=== PATIENT | male | born 1995 | race Caucasian/White ===

== ENCOUNTER 2021-10-08 11:56 | Day surgery (SDC) | payer OTHER, SELFPAY ==
--- NOTE | 2021-10-07 17:13 | HP.PCM_ITS ---
History and Physical Date of Admission: 10/08/21 HISTORY AND PHYSICAL ? Gilberto Light - 1995 REFERRING PHYSICIAN: Gera Ireland MD CHIEF COMPLAINT: Consult (Rectal Bleeding, Vomiting,Abdominal Pain) HPI: The patient is a 25 year old male presents with history of abdominal pain for the past four weeks. He has noted rectal bleeding for about two weeks. He notes multiple loose watery bowel movements, also, from 10-15 episodes per day. He denies exposure to food poisoning, etc. He also notes episodes of nausea and emesis. His pain is at a level of 5 out of 10, sometimes 7 out of 10 with fecal urgency - relieved after a bowel movement. He denies fevers. He denies cigarettes use, denies ETOH use, denies marijuana use. He denies previous endoscopic evaluation. Stool studies were negative. PAST MEDICAL HISTORY Acne ? ADD (attention deficit disorder) ? PAST SURGICAL HISTORY NONE ? Current Outpatient Medications multivitamin tablet Take 1 tablet by mouth once daily. ascorbic acid (VITAMIN C ORAL) Take by mouth. methylphenidate LA (RITALIN LA) 10 mg 24 hr capsule Take 1 capsule by mouth once daily for 30 days. methylphenidate LA (RITALIN LA) 10 mg 24 hr capsule Take 1 capsule by mouth once daily for 30 days. Do not start before September 05, 2021. ? ALLERGIES: Environmental [Other] ? PERSONAL HISTORY: Smoking status: Never Smoker Smokeless tobacco: Never Used Substance Use Topics Alcohol use: No Drug use: No FAMILY HISTORY ? Diabetes Maternal Grandfather ? ? other (ADHD) Mother ? ? REVIEW OF SYSTEMS: General: The patient NOTES fatigue, NOTES weight loss, denies weight gain, denies feeling hot, and denies feelings of cold. Eyes: The patient denies glaucoma, denies eye injury/surgery, does not wear glasses or contacts. Ear/Nose/Throat: The patient NOTES allergies, denies hayfever, denies ear infections, and denies bloody noses. Cardiovascular: The patient denies chest pain, denies heart disease, denies high blood pressure,denies cardiac stent, denies prior heart attack, denies irregular heart beat, denies high cholesterol, denies poor circulation, denies heart failure, other cardiac issues, denies claudication, denies cold feet, denies peripheral arterial stent. Respiratory: The patient denies tuberculosis, denies pneumonia, denies frequent cough, denies pulmonary embolism, denies shortness of breath, and denies coughing up blood. Gastrointestinal: The patient denies difficulty swallowing, denies acid reflux, denies ulcers, NOTES vomiting, denies jaundice/hepatitis, denies gallbladder problems, denies black or tarry stools, denies hemorrhoids, NOTES bleeding from rectum, denies diverticulitis, denies constipation, NOTES diar josy, denies loss of stool control, and denies hernias. Kidney/Bladder: The patient denies kidney stones, denies urine infections, and denies bloody urine. Skin: The patient denies a history of skin cancer, denies bleeding/changing moles, and denies a history of skin rash. Neurologic: The patient denies a history of epilepsy/convulsions, denies headaches, denies head/spinal injuries, and denies stroke/TIA. Psychiatric: The patient denies psychiatric medications, denies depression, and denies voices, denies substance abuse. Endocrine: The patient denies thyroid disorders, denies diabetes, and denies hormonal problems. Hematologic: The patient denies a history of bruising, denies bleeding, and denies anemia, denies blood clots. Infections: The patient denies a history of measles and mumps, denies rheumatic fever, and denies sexually transmitted diseases. Musculoskeletal: The patient denies back pain/injury, denies back problems, denies sciatica, denies knee/foot trouble, denies arthritis, or denies gout. When was patient's last Mammogram screening? N/A Last Colonoscopy: None Shanique Boyce ? PHYSICAL EXAMINATION: General: The patient is 25 year old male, well nourished, well hydrated in no acute distress. The patient is oriented to time, place, and person. VITALS: Blood pressure 122/83, pulse 115, temperature 36.5 ?C (97.7 ?F), height 185.4 cm (6' 1), weight 97.1 kg (214 lb), SpO2 99 %. Body mass index is 28.23 kg/m?. Head: Normal cephalic, atraumatic Eyes: pupils are equally round, sclera are clear/anicteric Neck is supple with no tracheal deviation Respiratory: Normal respiratory excursion and pattern. Abdominal exam: benign Extremities: no clubbing, cyanosis or edema. Neuro: non focal Psych: normal mood IMPRESSION: rectal bleeding, diarrhea, N/V ? PLAN: I have discussed the above with the patient and his mother who is present with him I have offered colonoscopy and EGD, possible biopsies I have explained the procedure to the patient. I have counseled the patient as to the risks of the procedure, including but not limited to: infection, bleeding, injury to any intrabdominal organs such as liver/spleen, perforation of the GI tract, inability to complete the procedure, complications of anesthesia, etc. ? the patient understands. The patient was offered a surgery/procedure . The provider and patient have discussed in detail the risk of exposure to and/or potential harm posed by the COVID-19 virus with having a surgery/procedure at this time versus the risk of? delaying the surgery/procedure. It is not possible to know either the risk of delaying the surgery or procedure or chance of getting an infection with perfect accuracy, but a joint decision was made between the patient and the provider ?to proceed at this time with the scheduled surgery/procedure. The patient wishes to proceed. I have answered all questions to the patient?s satisfaction and the patient has no further questions. ? ? Bibiana Barth MD
[2021-10-08] VITALS (11 sets, daily range): BP systolic 91–129; BP diastolic 56–79; PULSE 69–97; RESP 16; TEMP 35.9–36.6; O2SAT 95–100; BMI 27.6
[2021-10-08] MEDS: Lactated Ringers 1,000 ML 15 ML IV (12:39)
--- NOTE | 2021-10-08 13:15 | EGD_PTH ---
PATIENT: DEMETRIUS COCHRAN LOC: EN U#:[id number] AGE/SX: 26/M ROOM: RE10/08/[address]: Dr. Bibiana Barth MD : 1995 BED: DIS: 10/08/2021 SPEC #: [id number] RECD: 10/08/21 15:04 STATUS: DANNY JERONIMO #: [id number] HERIBERTO: 10/08/21 13:[address]: Bibiana Barth DEPT: SURGICAL PATHOLOGY RECD BY: Gwen Briones ENTERED: 10/09/21 11:03 SP TYPE: EGD BIOPSY LISA DR: Dr. Gera Ireland MD Tissues: A - Duodenum, NOS B - Gastric mucous membrane C - COLON BIOPSY D - COLON BIOPSY E - Transverse colon F - COLON BIOPSY G - Rectum, NOS Procedures: Surgery Specimen Level IV HEADER OPERATION: Colonoscopy, EGD ([facility] [place]) PRE-OP DIAGNOSIS: Rectal bleeding, diarrhea, nausea, vomiting TISSUE SUBMITTED: A ? Duodenum, B ? Antrum, C ? Biopsy of right colon, D ? Hepatic flexure biopsy, E ? Transverse colon biopsy, F ? Left colon and sigmoid biopsy, G ? Rectal biopsy MICROSCOPIC DIAGNOSIS A. Duodenum, biopsy: Fragments of small intestinal mucosa, no pathologic diagnosis. B. Antrum, biopsy: Mild gastritis. See microscopic description and comment. C. Right colon, biopsy: Diffuse moderate chronic active colitis. Negative for dysplasia. See microscopic description and comment. D. Hepatic flexure, biopsy: Diffuse moderate chronic active colitis. Negative for dysplasia. See microscopic description and comment. E. Transverse colon biopsy: Diffuse moderate chronic active colitis. Negative for dysplasia. See microscopic description and comment. F. Left colon and sigmoid biopsy: Diffuse moderate chronic active colitis. Negative for dysplasia. See microscopic description and comment. G. Rectal biopsy: Diffuse moderate chronic active colitis. Negative for dysplasia. See microscopic description and comment. SJ:marium 10/12/2021 COMMENT B. The results of immunohistochemistry for Helicobacter pylori will be reported separately ([id number]). C-G. The findings are consistent with inflammatory bowel disease (ulcerative colitis). Correlation with clinical, endoscopic findings and appropriate follow up are necessary. MICROSCOPIC DESCRIPTION Slides are reviewed. B. The specimen shows fragments of gastric mucosa with chronic inflammatory cell infiltrates in the lamina propria consisting of lymphocytes and plasma cells, consistent with mild chronic gastritis. C-G. The specimens show similar morphological features. The specimens show fragments of colonic mucosa with diffuse moderate acute and chronic inflammatory cells, infiltrates in the lamina propria, cryptitis, crypt abscesses, minimal glandular distortion. Granulomas are not seen. No evidence of dysplasia. GROSS DESCRIPTION A - Received in fixative is one container labeled with the patient's name and designated duodenum. The specimen consists of two irregular fragments of light lockhart soft tissue that measure in aggregate 0.3 x 0.2 x 0.1 cm. The specimen is totally submitted in one cassette. B - Received in fixative is one container labeled with the patient's name and designated antrum. The specimen consists of two irregular fragments of light lockhart soft tissue that measure in aggregate 0.3 x 0.2 x 0.1 cm. The specimen is totally submitted in one cassette. C - Received in fixative is one container labeled with the patient's name and designated biopsy of right colon. The specimen consists of multiple irregular fragments of light lockhart soft tissue that in aggregate measure 1.5 x 0.2 x 0.1 cm. The specimen is totally submitted in one cassette. D - Received in fixative is one container labeled with the patient's name and designated hepatic flexure biopsy. The specimen consists of two irregular fragments of light lockhart soft tissue that in aggregate measure 0.5 x 0.2 x 0.1 cm. The specimen is totally submitted in one cassette. E - Received in fixative is one container labeled with the patient's name and designated transverse colon biopsy. The specimen consists of multiple irregular fragments of light lockhart soft tissue that in aggregate measure 1 x 0.2 x 0.1 cm. The specimen is totally submitted in one cassette. F - Received in fixative is one container labeled with the patient's name and designated left colon and sigmoid biopsy. The specimen consists of multiple irregular fragments of light lockhart soft tissue that in aggregate measure 0.5 x 0.5 x 0.1 cm. The specimen is totally submitted in one cassette. G - Received in fixative is one container labeled with the patient's name and designated rectal biopsy. The specimen consists of multiple irregular fragments of light lockhart soft tissue that in aggregate measure 0.6 x 0.2 x 0.1 cm. The specimen is totally submitted in one cassette. / TERRI:marium 10/09/2021 TC:2 CPT: 09810 x7
--- NOTE | 2021-10-08 13:15 | IMM_PTH ---
PATIENT: DEMETRIUS COCHRAN LOC: EN U#:[id number] AGE/SX: 26/M ROOM: RE10/08/[address]: Dr. Bibiana Barth MD : 1995 BED: DIS: 10/08/2021 SPEC #: [id number] RECD: 10/09/21 13:36 STATUS: DANNY REQ #: [id number] HERIBERTO: 10/08/21 13:[address]: Bibiana Barth DEPT: IMMUNOHISTOCHEMISTRY RECD BY: Shabnam Berumen ENTERED: 10/09/21 13:36 SP TYPE: IMMUNO OTHR DR: Dr. Gera Ireland MD Tissues: B - Stomach, NOS Procedures: H Pylori (initial) PHYSICIAN & INSTITUTION [place] [id number] SPECIMEN INFORMATION: Tissue Source: B - Antrum Clinical Info: Rectal bleeding, diarrhea, nausea, vomiting Specimen Number: [id number] CPT code: 59787 METHODOLOGY: Deparaffinized sections of prefer/formalin-fixed tissue or PAP/DQ stained slides are incubated with monoclonal/polyclonal antibodies/oligonucleotide probes. Localization is made via biotin free immunoperoxidase method. Appropriate controls are performed and reacted as expected. Results on target cell population are indicated in the following table: RESULTS: ANTIBODY / CLONE RESULT Block B H Pylori (polyclonal) negative These tests were developed and their performance characteristics determined by [facility]. They may not have been cleared or approved by the [place].S. Food and Drug Administration. The FDA has determined that such clearance or approval is not necessary. INTERPRETATION: B. Antrum biopsy: Negative for Helicobacter pylori organisms. SJ:marium 10/12/2021
--- NOTE | 2021-10-08 13:47 | OP.EGD_ITS ---
Patient Name: Gilberto Light Procedure Date: 10/08/2021 12:57 PM Date of : 1995 Age: 26 Procedure: Upper GI endoscopy Indications: Nausea with vomiting Providers: Bibiana Barth MD Medicines: See the Anesthesia note for documentation of the administered medications Patient Profile: Refer to note in patient chart for documentation of history and physical. Complications: No immediate complications. Procedure: Pre-Anesthesia Assessment: - see anesthesia note After obtaining informed consent, the endoscope was passed under direct vision. Throughout the procedure, the patient's blood pressure, pulse, and oxygen saturations were monitored continuously. The Endoscope was introduced through the mouth, and advanced to the second part of duodenum. The upper GI endoscopy was accomplished without difficulty. The patient tolerated the procedure well. Scope In: 1:16:50 PM Scope Out: 1:22:20 PM Total Procedure Duration Time 0 hours 5 minutes 30 seconds Findings: The first portion of the duodenum and second portion of the duodenum were normal. Biopsies were taken with a cold forceps for histology. Verification of patient identification for the specimen was done by the nurse. Estimated blood loss was minimal. Striped radially very mild erythematous mucosa without bleeding was found in the gastric antrum. Biopsies were taken with a cold forceps for histology. Estimated blood loss was minimal. A very small hiatal hernia was present. No irregularities of zlinenoted Impression: - Normal first portion of the duodenum and second portion of the duodenum. Biopsied. - Very mildly erythematous mucosa in the antrum. Biopsied. - Very small hiatal hernia. Recommendation: - Discharge patient to home (ambulatory). - Resume previous diet. - Continue present medications. - Await pathology results. - Follow up visit via telemedicine with Delores Nelson PA-C to discuss results. Call to set this up, thank you Procedure Code(s): --- Professional --- 18891, Esophagogastroduodenoscopy, flexible, transoral; with biopsy, single or multiple Diagnosis Code(s): --- Professional --- K31.89, Other diseases of stomach and duodenum K44.9, Diaphragmatic hernia without obstruction or gangrene R11.2, Nausea with vomiting, unspecified CPT copyright 2017 [employer]. All rights reserved. The codes documented in this report are preliminary and upon j2ee application developer review may be revised to meet current compliance requirements. MD Bibiana Crystal MD 10/08/2021 1:47:21 PM This report has been signed electronically. Number of Addenda: 0 Note Initiated On: 10/08/2021 12:57 PM
--- NOTE | 2021-10-08 13:53 | OP.COLON_ITS ---
Patient Name: Gilberto Light Procedure Date: 10/08/2021 1:24 PM Date of : 1995 Age: 26 Procedure: Colonoscopy Indications: Rectal bleeding, Chronic diarrhea Providers: Bibiana Barth MD Medicines: See the Anesthesia note for documentation of the administered medications Patient Profile: Refer to note in patient chart for documentation of history and physical. Last Colonoscopy: none. The patient's first colonoscopy is today. Complications: No immediate complications. Procedure: Pre-Anesthesia Assessment: - see anesthesia note After I obtained informed consent, the scope was passed under direct vision. Throughout the procedure, the patient's blood pressure, pulse, and oxygen saturations were monitored continuously. The pediatric colonoscope was introduced through the anus and advanced to the cecum, identified by the appendiceal orifice, IC valve and transillumination. The colonoscopy was performed without difficulty. The patient tolerated the procedure well. The quality of the bowel preparation was poor, there was still retained fecal material. Therefore lavage and aspiration was done to clear the fecal material. This took some time. The benitez were cleared adequately. Scope In: 1:26:11 PM Scope Withdrawal Time 0 hours 10 minutes 50 seconds Scope Out: 1:41:53 PM Total Procedure Duration Time 0 hours 15 minutes 42 seconds Findings: The perianal and digital rectal examinations were normal. Diffuse moderate inflammation characterized by erythema, friability, granularity, mucus and shallow ulcerations was found in the entire colon - there appeared to be no spared areas. Biopsies for histology were taken with a cold forceps from the entire colon for evaluation of colitis of unknown etiology -suspect UC. Verification of patient identification for the specimen was done by the nurse. Estimated blood loss was minimal. Impression: - Diffuse moderate inflammation was found in the entire examined colon, secondary to colitis and rule out inflammatory bowel disease. Biopsied. Recommendation: - Discharge patient to home (ambulatory). - Resume previous diet. - Continue present medications. - Await pathology results. - Follow up visit via telemedicine with Delores Nelson PA-C to discuss results. Call to set this up, thank you - Repeat colonoscopy is recommended for surveillance. The colonoscopy date will be determined after pathology results from today's exam become available for review. Procedure Code(s): --- Professional --- 30025, Colonoscopy, flexible; with biopsy, single or multiple Diagnosis Code(s): --- Professional --- K52.9, Noninfective gastroenteritis and colitis, unspecified K62.5, Hemorrhage of anus and rectum CPT copyright 2017 [employer]. All rights reserved. The codes documented in this report are preliminary and upon canvass manager review may be revised to meet current compliance requirements. MD Bibiana Crystal MD 10/08/2021 1:53:09 PM This report has been signed electronically. Number of Addenda: 0 Note Initiated On: 10/08/2021 1:24 PM
--- NOTE | 2021-10-08 14:02 | EX.PCM.DISCH ---
Discharge Instructions Follow Up Care Test Results: Test results from this visit will be discussed in further detail at your follow-up appointment, if applicable. Discharge Plan Admission Attending Provider: Bibiana Barth Primary Care Provider: Gera Ireland Instructions Additional Instructions / Restrictions: start medication - take one tablet twice a day for 1-2 days, then increase to two tablets twice a day If you have increasing abdominal pain, or stomach upset, or any of the symptoms listed on the bottle, then stop taking the medication Final pathology to be discussed with Delores Nelson, please make an appointment in about a week, , thank you Discharge Orders/Prescriptions Prescriptions: New sulfasalazine [Azulfidine] 500 mg tablet 0.5 g PO BID 20 Days Qty: 40 RF: 0 Referrals / Follow Up: Gera Ireland MD [Primary Care Provider] - Disposition Disposition (needs filled in before D/C Order can be placed): Home, Self Care
== END 2021-10-08 23:59 | disposition home or self-care (01) ==
LOC: EN 12:10 → AC 12:14
PROVIDERS: PCP Family Medicine; Referring Provider Surgery; Visit Provider Surgery
PROC: 0DJD8ZZ Inspection of Lower Intestinal Tract, Via Natural or Artificial Opening Endoscopic (ICD-10-PCS; CPT 45378; principal; 2021-10-08 13:10)
DX: K29.70 Gastritis, unspecified, without bleeding (principal); K44.9 Diaphragmatic hernia without obstruction or gangrene; K31.89 Other diseases of stomach and duodenum; K52.9 Noninfective gastroenteritis and colitis, unspecified; K62.5 Hemorrhage of anus and rectum; R11.2 Nausea with vomiting, unspecified
CPT/HCPCS: 45380; 43239; 88305; 88342; J7120; J2405

== ENCOUNTER → 2022-07-08 | Outpatient (CLI) | payer OTHER, SELFPAY ==
[2022-07-08 16:22] LABS: Absolute Lymphocyte Count 1.33 X10^3/uL (0.83-4.51); Absolute Neutrophil Count 2.6 X10^3/uL (2.0-7.7); Basophil# 0.02 X10^3/uL; Basophil% 0.4 % (0-1); Eosinophil# 0.08 X10^3/uL; Eosinophils% 1.7 % (0-5); Hematocrit 44.3 % (40-54); Hemoglobin 15.1 g/dL (13.0-16.5); Lymphocyte # 1.33 X10^3/ul (0.83-4.51); Lymphocyte % 28.2 % (19-41); Mean Corp Hgb Conc 34.1 g/dL (32-36); Mean Corpuscular Hgb 29.1 pg (27.0-32.0); Mean Corpuscular Volume 85.4 fL (80-94); Monocyte# 0.63 X10^3/uL; Monocyte% 13.4 % (0-10); NRBC Flagged by Analyzer 0 % (0-5); Neutrophil # 2.64 X10^3/uL (2.7-7.7); Neutrophil % 56.1 % (47-70); Platelet Count 218 K/mm3 (150-450); RBC Distribution Width CV 12.9 % (11.6-14.6); RBC Distribution Width SD 39.8 fl (35.1-43.9); Red Blood Count 5.19 M/mm3 (4.6-6.2); White Blood Count 4.7 K/mm3 (4.4-11.0)
[2022-07-08 16:28] LABS: Erythrocyte Sedimentation Rate 2 mm/hr (0-20)
[2022-07-08 16:42] LABS: ALB/GLOB Ratio 1.2 RATIO (0.9-2.4); AST(SGOT) 17 U/L (15-37); Alanine Aminotransfer ALT/SGPT 43 U/L (16-61); Albumin, Serum 3.9 g/dL (3.2-5.0); Alkaline Phosphatase 68 U/L (45-117); Anion Gap 7 (5-15); BUN 15 mg/dL (7-18); BUN/Creat Ratio 23.7 RATIO (10-20); CRP < 2.90 mg/L (0.0-3.0); Calcium,Total 8.7 mg/dL (8.5-10.1); Chloride 109 mmol/L (98-107); Creatinine, Serum 0.63 mg/dL (0.70-1.30); EST Glomerular Filtration Rate 163 mL/min (>60); Est Glom Filt Rate - Afr Amer 197 mL/min (>60); Globulin 3.3 g/dL (2.2-4.2); Glucose 93 mg/dL (74-106); LDH 217 U/L (87-241); Potassium 3.8 mmol/L (3.5-5.1); Protein, Total 7.2 g/dL (6.4-8.2); Sodium Level 141 mmol/L (136-145)
[2022-07-10 13:07] LABS: Anti-Centromere B Ab <0.2 AI (0.0-0.9); Anti-Chromatin <0.2 AI (0.0-0.9); Anti-Jo <0.2 AI (0.0-0.9); Anti-Scleroderma-70 AB <0.2 AI (0.0-0.9); RNP Ab <0.2 AI (0.0-0.9); SJOGREN'S Anti-SS-A test < 0.2 AI (0.0-0.9); SJOGREN'S Anti-SS-B test < 0.2 AI (0.0-0.9); Smith Ab <0.2 AI (0.0-0.9)
[2022-07-11 11:25] LABS: Anti-dsDNA Ab <1 IU/mL (0-9)
[2022-07-12 15:08] LABS: Endomysial Antibody IgA Negative (Negative)
[2022-07-13 08:53] LABS: Immunoglobulin A 50 mg/dL (90-386); t-Transglutaminase IgA <2 U/mL (0-3)
[2022-07-17 08:12] LABS: Alpha-1-Globulins 0.3 g/dL (0.0-0.4); Alpha-2-Globulins 0.6 g/dL (0.4-1.0); Cytoplasmic Ab (C-ANCA) <1:20 titer (Neg:<1:20); Gamma Globulin 0.7 g/dL (0.4-1.8); HEPATITIS B SURFACE AG Negative (Negative); Hep C Antibodies <0.1 s/co ratio (0.0-0.9); Hepatitis A IgM Antibody Negative (Negative); Hepatitis B Core AB IgM Negative (Negative); Immunoglobulin E 3 IU/mL (6-495); Immunoglobulin G 780 mg/dL (603-1613); Immunoglobulin M 56 mg/dL (20-172); PROEL- TOTAL PROTEIN 6.6 g/dL (6.0-8.5); QNTFERON TB Mitogen Value 4.88 IU/mL (.); QNTFERON TB Nil Value 0.03 IU/mL (.); QNTFERON TB1+ Ag Value 0.05 IU/mL (.); QNTFERON TB2+ Ag Value 0.04 IU/mL (.)
[2022-07-17 09:13] LABS: Immunoglobulin A 48 mg/dL (90-386)
[2022-07-17 09:14] LABS: Perinuclear Ab (P-ANCA) <1:20 titer (Neg:<1:20); QNTIFERON TB Positive Criteria Negative (Negative)
== END | disposition home or self-care (01) ==
PROVIDERS: PCP Family Medicine; Referring Provider Internal Medicine Gastroenterology; Visit Provider Internal Medicine Gastroenterology
DX: K51.90 Ulcerative colitis, unspecified, without complications (principal)
CPT/HCPCS: 36415; 80053; 80074; 82784; 82785; 83516; 83615; 84165; 85025; 85652; 86140; 86225; 86235; 86255; 86256; 86334; 86480

== ENCOUNTER → 2022-07-09 | Outpatient (CLI) | payer OTHER, SELFPAY ==
[2022-07-14 10:28] LABS: Pancreatic Elastase, Fecal 147 (>200)
[2022-07-17 11:55] LABS: Calprotectin, Stool <16 ug/g (0-120); Fats, Neutral Normal (.); Fats, Total Normal (.)
== END | disposition home or self-care (01) ==
PROVIDERS: PCP Family Medicine; Referring Provider Internal Medicine Gastroenterology; Visit Provider Internal Medicine Gastroenterology
DX: K51.90 Ulcerative colitis, unspecified, without complications (principal)
CPT/HCPCS: 82653; 82705; 83630; 83993; 87506

== ENCOUNTER → 2022-08-19 | Outpatient (CLI) | payer OTHER, SELFPAY ==
[2022-08-19 17:02] LABS: Erythrocyte Sedimentation Rate 1 mm/hr (0-20)
[2022-08-19 17:22] LABS: CRP < 2.90 mg/L (0.0-3.0)
== END | disposition home or self-care (01) ==
LOC: LAB 16:34
PROVIDERS: PCP Family Medicine; Visit Provider Internal Medicine Gastroenterology
DX: K51.90 Ulcerative colitis, unspecified, without complications (principal); K58.9 Irritable bowel syndrome, unspecified
CPT/HCPCS: 36415; 85652; 86140

== ENCOUNTER → 2022-08-20 | Outpatient (CLI) | payer OTHER, SELFPAY | END | disposition home or self-care (01) | LOC: LABSPEC 08:09 | PROVIDERS: PCP Family Medicine; Referring Provider Internal Medicine Gastroenterology; Visit Provider Internal Medicine Gastroenterology | DX: K51.90 Ulcerative colitis, unspecified, without complications (principal) | CPT/HCPCS: 87177; 87209; 87329 ==

== ENCOUNTER → 2023-04-18 | Outpatient (CLI) | payer OTHER, SELFPAY ==
[2023-04-18 16:29] LABS: Absolute Neutrophil Count 3.9 X10^3/uL (2.0-7.7); Basophil# 0.05 X10^3/uL; Basophil% 0.8 % (0-1); Eosinophils% 1.6 % (0-5); Hematocrit 45.1 % (40-54); Hemoglobin 15.4 g/dL (13.0-16.5); Lymphocyte % 23.9 % (19-41); Mean Corp Hgb Conc 34.1 g/dL (32-36); Mean Corpuscular Hgb 29.3 pg (27.0-32.0); Mean Corpuscular Volume 85.9 fL (80-94); Mean Platelet Vol. 10.5 fl (6.2-12.0); Monocyte# 0.66 X10^3/uL; Monocyte% 10.5 % (0-10); NRBC Flagged by Analyzer 0 % (0-5); Neutrophil # 3.94 X10^3/uL (2.7-7.7); Neutrophil % 62.9 % (47-70); Platelet Count 233 K/mm3 (150-450); RBC Distribution Width SD 37.7 fl (35.1-43.9); Red Blood Count 5.25 M/mm3 (4.6-6.2); White Blood Count 6.3 K/mm3 (4.4-11.0)
[2023-04-18 16:58] LABS: Erythrocyte Sedimentation Rate 7 mm/hr (0-20)
[2023-04-18 17:24] LABS: ALB/GLOB Ratio 1.2 RATIO (0.9-2.4); AST(SGOT) 15 U/L (15-37); Alanine Aminotransfer ALT/SGPT 37 U/L (16-61); Albumin, Serum 3.8 g/dL (3.2-5.0); Alkaline Phosphatase 78 U/L (45-117); Amylase 52 U/L (25-115); Anion Gap 4 (5-15); BUN 14 mg/dL (7-18); BUN/Creat Ratio 18.1 RATIO (10-20); CRP < 2.90 mg/L (0.0-3.0); Calcium,Total 8.4 mg/dL (8.5-10.1); Chloride 111 mmol/L (98-107); Creatinine, Serum 0.77 mg/dL (0.70-1.30); EST Glomerular Filtration Rate 129 mL/min (>60); Est Glom Filt Rate - Afr Amer 156 mL/min (>60); Globulin 3.2 g/dL (2.2-4.2); Glucose 114 mg/dL (74-106); Lipase 21 U/L (13-75); Potassium 3.7 mmol/L (3.5-5.1); Sodium Level 140 mmol/L (136-145)
== END | disposition home or self-care (01) ==
LOC: LAB 14:20
PROVIDERS: PCP Family Medicine; Referring Provider Internal Medicine Gastroenterology; Visit Provider Internal Medicine Gastroenterology
DX: K51.90 Ulcerative colitis, unspecified, without complications (principal)
CPT/HCPCS: 36415; 80053; 82150; 83690; 85025; 85652; 86140

== ENCOUNTER 2023-11-09 05:53 | Day surgery (SDC) | payer OTHER, SELFPAY ==
[2023-11-09] VITALS (7 sets, daily range): BP systolic 105–115; BP diastolic 63–81; PULSE 69–79; RESP 16–18; TEMP 36.2–36.7; O2SAT 94–97; BMI 29.9
--- NOTE | 2023-11-09 | EGD_PTH ---
PATHOLOGY RESULTS PATIENT: DEMETRIUS COCHRAN LOC: EN U#:[id number] AGE/SX: 28/M ROOM: RE11/09/[address]: Dr. Adam Cintron DO : 1995 BED: DIS: 11/09/2023 SPEC #: [id number] RECD: 11/09/23 12:50 STATUS: DANNY REQ #: [id number] HERIBERTO: 11/09/23 00:[address]: Adam Cintron DEPT: SURGICAL PATHOLOGY RECD BY: Juan David Wood ENTERED: 11/09/23 12:50 SP TYPE: EGD BIOPSY OT DR: Dr. Gera Ireland MD Tissues: Duodenum, NOS Esophageal mucous membrane Procedures: Special Stain Group II Surgery Specimen Level IV Alcian Blue/PAS (control) HEADER OPERATION: EGD with biopsies PRE-OP DIAGNOSIS: Ulcerative colitis, GERD TISSUE SUBMITTED: A - Duodenum biopsy, B - Distal esophagus biopsy MICROSCOPIC DIAGNOSIS A. Duodenum, biopsy: Fragments of duodenal mucosa with mild Prachi gland hyperplasia. B. Distal esophagus, biopsy: Fragments of gastric mucosa with chronic inflammation. Intestinal metaplasia (goblet cell metaplasia) not identified. See comment. TERRI:marium 11/10/2023 COMMENT B. Alcian blue/PAS stain with matched control is used in the evaluation of the specimen. MICROSCOPIC DESCRIPTION Slides are reviewed. GROSS DESCRIPTION A - Received in fixative is one container labeled with the patient's name and designated duodenum biopsy. The specimen consists of two irregular fragments of light lockhart soft tissue that in aggregate measure 0.6 x 0.4 x 0.1 cm. The specimen is totally submitted in one cassette. B - Received in fixative is one container labeled with the patient's name and designated distal esophagus biopsy. The specimen consists of two irregular fragments of light lockhart soft tissue that in aggregate measure 0.6 x 0.2 x 0.1 cm. The specimen is totally submitted in one cassette. / TERRI:marium 11/09/2023 TC:3 CPT: 99498 x2, 75887
--- OUTSIDE RECORDS SUMMARY | 2023-11-09 05:56 | XMS RPT_ITS | CCD ---
Author Name Unknown Address [address] [place] [address] Organization [facility] Care Team Providers Care Ordnance Keeper Name Role Phone REJI MAGANA DO Admitting Unavailable ALEXUS IRELAND Referring Unavailable ALEXUS IRELAND Unavailable REJI MAGANA DO Attending Unavailable REJI MAGANA DO Primary Care Unavailable PROVIDER, BRITNEY Consulting Unavailable Alexus Ireland MD Primary Care Provider Alexus Ireland MD Primary Care Provider ALEXUS IRELAND Primary Care Unavailable ALEXUS IRELAND Primary Care Unavailable ALEXUS IRELAND Attending Unavailable ALEXUS IRELAND Primary Care Unavailable ALEXUS IRELAND Referring Unavailable ALEXUS IRELAND Attending Unavailable ALEXUS IRELAND Primary Care Unavailable ALEXUS IRELAND Referring Unavailable ALEXUS IRELAND Primary Care Unavailable Allergies Allergy Classification Reported Allergen(s) Allergy Type Date of Onset Reaction(s) Facility (6 sources) environmental [Other] Propensity to adverse reactions 7 [facility] Work Phone: (1 source) OTHER; Translations: [OTHER] Propensity to adverse reactions (disorder) [address] [place] [address] Repository Medications Current Medications Medication Drug Class(es) Dates Sig (Normalized) Sig (Original) omeprazole 20 mg delayed release oral capsule (1 source) Proton Pump Inhibitor Start: 08-22-2023 End: 02-18-2024 take 1 capsule by mouth once daily before breakfast omeprazole (PRILOSEC) 20 mg capsule Indications: Chronic cough Take 1 capsule by mouth daily before breakfast. 1/2 hr before meal. 30 capsule 5 08/22/2023 02/18/2024 Active Completed/Discontinued Medications Medication Drug Class(es) Dates Sig (Normalized) Sig (Original) Ascorbic Acid (2 sources) Vitamin C End: 08-05-2022 ascorbic acid (VITAMIN C ORAL) Take by mouth. 0 08/05/2022 Discontinued Problems Active Problems Problem Classification Problem Date Documented Date Episodic/Chronic Developmental disorders (7 sources) Learning difficulties; Translations: [Developmental disorder of scholastic skills, unspecified] Onset: 04-02-2008 04-02-2008 Chronic Disorders usually diagnosed in infancy, childhood, or adolescence (7 sources) Attention deficit hyperactivity disorder, predominantly inattentive type; Translations: [Other specified behavioral and emotional disorders with onset usually occurring in childhood and adolescence] Onset: 09-30-2009 09-28-2021 Chronic Esophageal disorders (1 source) Gastro-esophageal reflux disease without esophagitis; Translations: [Gastroesophageal reflux disease without esophagitis] Onset: 10-17-2023 Chronic Immunizations and screening for infectious disease (1 source) Needs influenza immunization; Translations: [Encounter for immunization] Episodic Other connective tissue disease (2 sources) Pain in left foot; Translations: [Pain in left foot] Episodic Other ear and sense organ disorders (1 source) Impacted cerumen of bilateral ears; Translations: [Impacted cerumen, bilateral] Episodic Other lower respiratory disease (2 sources) Chronic cough; Translations: [Chronic cough] Onset: 08-22-2023 08-22-2023 Episodic Other nutritional; endocrine; and metabolic disorders (7 sources) Obese class I; Translations: [Obesity, unspecified] Onset: 06-20-2019 06-20-2019 Chronic Regional enteritis and ulcerative colitis (8 sources) Ulcerative pancolitis; Translations: [Ulcerative (chronic) pancolitis without complications] Onset: 11-09-2021 11-09-2021 Chronic Unclassified (1 source) Cough, unspecified type; Translations: [Cough, unspecified type] Onset: 10-17-2023 Past or Other Problems Problem Classification Problem Date Documented Da te Episodic/Chronic Gastritis and duodenitis (7 sources) Gastritis; Translations: [Gastritis, unspecified, without bleeding] Onset: 11-16-2021 11-16-2021 Episodic Other skin disorders (7 sources) Acne; Translations: [Acne, unspecified] Onset: 09-30-2010 09-30-2010 Episodic Sprains and strains (1 source) Strain of neck muscle; Translations: [Strain of muscle, fascia and tendon at neck level, initial encounter] Onset: 12-17-2019 12-17-2019 Episodic Results Test Name Value Interpretation Reference Range Facil ity Vital Signs Date Time Vital Sign Value Performing Clinician Gutierrez lawler 08-22-2023 12:55-0500 Body weight 105.23 kg Alexus Ireland MD Work Phone: [facility] 08-22-2023 12:55-0500 Diastolic blood pressure 62 mm[Hg] Alexus Ireland MD Work Phone: [facility] 08-22-2023 12:55-0500 Heart rate 96 /min Alexus Ireland MD Work Phone: [facility] 08-22-2023 12:55-0500 SaO2% (BldA) [Mass fraction] 98 % Alexus Ireland MD Work Phone: [facility] 08-22-2023 12:55-0500 Systolic blood pressure 122 mm[Hg] Alexus Ireland MD Work Phone: [facility] 03-28-2023 11:37-0400 Body temperature 97.59 [degF] Yvrose Athy PA-C Work Phone: [facility] 03-28-2023 11:37-0400 Diastolic blood pressure 80 mm[Hg] Yvrose Athy PA-C Work Phone: [facility] 03-28-2023 11:37-0400 Heart rate 82 /min Yvrose Athy PA-C Work Phone: [facility] 03-28-2023 11:37-0400 Respiratory rate 16 /min Yvrose Athy PA-C Work Phone: [facility] 03-28-2023 11:37-0400 SaO2% (BldA) [Mass fraction] 97 % Yvrose Athy PA-C Work Phone: [facility] 03-28-2023 11:37-0400 Systolic blood pressure 110 mm[Hg] Yvrose Athy PA-C Work Phone: [facility] 08-05-2022 13:06-0400 Body height 183 cm Alexus Ireland MD Work Phone: [facility] 08-05-2022 13:06-0400 Body weight 105.69 kg Alexus Ireland MD Work Phone: [facility] 08-05-2022 13:06-0400 Diastolic blood pressure 82 mm[Hg] Alexus Ireland MD Work Phone: [facility] 08-05-2022 13:06-0400 Heart rate 85 /min Alexus Ireland MD Work Phone: [facility] 08-05-2022 13:06-0400 SaO2% (BldA) [Mass fraction] 96 % Alexus Ireland MD Work Phone: [facility] 08-05-2022 13:06-0400 Systolic blood pressure 118 mm[Hg] Alexus Ireland MD Work Phone: [facility] Encounters Encounter Date Encounter Type Care Provider Facility Start: 10-17-2023 End: 10-18-2023 [facility] Start: 08-22-2023 End: 08-22-2023 ambulatory [facility] Facility:[facility] Start: 08-22-2023 End: 08-22-2023 Patient encounter procedure Alexus Ireland MD Work Phone: [facility] Procedures Date Procedure Procedure Detail Performing Clinician Start: 08-05-2022 INFLUENZA VACCINE QUADRIVALENT 6 MO - 64 YRS IM Alexus Ireland MD Work Phone: Start: 07-19-2022 2019 CORONAVIRUS [facility] Pr ovider Plan of Treatment Date Care Activity Detail Author Start: 06-20-2029 Urine microalbumin profile [facility] Start: 08-22-2024 Hepatitis A Vaccine (1 of 2 - Risk 2-dose series) Hepatitis A Vaccine (1 of 2 - Risk 2-dose series) [facility] Immunizations Immunization Date Immunization Notes Care Provider Fa cility 07-28-2023 Seasonal, quadrivale nt, recombinant, injectable influenza vaccine, preservative free Alexus Ireland MD Work Phone: [facility] 08-05-2022 influenza, injectabl e, quadrivalent, contains preservative Alexus Ireland MD Work Phone: [facility] 08-05-2022 influenza virus vacc ine, unspecified formulation Alexus Ireland MD Work Phone: [facility] 06-20-2019 tetanus toxoid, redu sari diphtheria toxoid, and acellular pertussis vaccine, adsorbed Alexus Ireland MD Work Phone: [facility] 08-06-2014 influenza, seasonal, injectable Alexus Ireland MD Work Phone: [facility] 02-28-2014 human papilloma viru s vaccine, quadrivalent Alexus Ireland MD Work Phone: [facility] Work Phone: 07-14-2013 influenza virus vacc ine, unspecified formulation Alexus Ireland MD Work Phone: [facility] 11-28-2012 human papilloma viru s vaccine, quadrivalent Alexus Ireland MD Work Phone: [facility] Work Phone: 11-28-2012 Meningococcal, MCV4, unspecified conjugate formulation(groups A, C, Y and W-135) Alexus Ireland MD Work Phone: [facility] Work Phone: 06-24-2012 influenza virus vacc ine, unspecified formulation Alexus Ireland MD Work Phone: [facility] Work Phone: 07-03-2010 influenza virus vacc ine, unspecified formulation Alexus Ireland MD Work Phone: [facility] Work Phone: 09-30-2009 Meningococcal, MCV4, unspecified conjugate formulation(groups A, C, Y and W-135) Alexus Ireland MD Work Phone: [facility] Work Phone: 08-12-2009 novel Influenza-H1N1 -09, live virus for nasal administration Alexus Ireland MD Work Phone: [facility] 03-01-2009 tetanus toxoid, redu sari diphtheria toxoid, and acellular pertussis vaccine, adsorbed Alexus Ireland MD Work Phone: [facility] 04-02-2008 varicella virus vaccine Will karen Ireland MD Work Phone: [facility] Work Phone: 08-15-2007 influenza virus vacc ine, whole virus Alexus Ireland MD Work Phone: [facility] 08-15-2006 influenza virus vacc ine, unspecified formulation Alexus Ireland MD Work Phone: [facility] Work Phone: 08-19-2005 influenza virus vacc ine, whole virus Alexus Ireland MD Work Phone: [facility] Work Phone: 09-13-2003 influenza virus vacc ine, whole virus Alexus Ireland MD Work Phone: [facility] Work Phone: 05-04-2002 diphtheria, tetanus toxoids and acellular pertussis vaccine Alexus Ireland MD Work Phone: [facility] Work Phone: 05-04-2002 measles, mumps and rubella virus vaccine Alexus Ireland MD Work Phone: [facility] Work Phone: 05-04-2002 poliovirus vaccine, inactivated Alexus Ireland MD Work Phone: [facility] Work Phone: 07-25-1998 varicella virus vaccine Will karen Ireland MD Work Phone: [facility] Work Phone: 05-19-1998 DTaP-Haemophilus influenzae type b conjugate vaccine Alexus Ireland MD Work Phone: [facility] Work Phone: 05-19-1998 poliovirus vaccine, inactivated Alexus Ireland MD Work Phone: [facility] Work Phone: 11-23-1997 measles, mumps and rubella virus vaccine Alexus Ireland MD Work Phone: [facility] Work Phone: 04-27-1997 DTaP-Haemophilus influenzae type b conjugate vaccine Alexus Ireland MD Work Phone: [facility] Work Phone: 04-27-1997 hepatitis B vaccine, pediatric or pediatric/adolescent dosage Alexus Ireland MD Work Phone: [facility] Work Phone: 03-02-1997 DTaP-Haemophilus influenzae type b conjugate vaccine Alexus Ireland MD Work Phone: [facility] Work Phone: 03-02-1997 poliovirus vaccine, inactivated Alexus Ireland MD Work Phone: [facility] Work Phone: 1996 DTaP-Haemophilus influenzae type b conjugate vaccine Alexus Ireland MD Work Phone: [facility] Work Phone: 1996 poliovirus vaccine, inactivated Alexus Ireland MD Work Phone: [facility] Work Phone: 1996 hepatitis B vaccine, pediatric or pediatric/adolescent dosage Alexus Ireland MD Work Phone: [facility] Work Phone: 1996 hepatitis B vaccine, pediatric or pediatric/adolescent dosage Alexus Ireland MD Work Phone: [facility] Work Phone: Payers Date Payer Category Payer Unknown [id number] 2021 Private Health Insurance [id number] 2021 Private Health Insurance [facility] [id number] 2021-Present [phone] [address] [address] [place] [address] HMO [id number] 1996 Unknown [id number] Social History Date Type Detail Facility Start: 03-08-2011 Tobacco smoking stat [facility] Never smoked tobacco [facility] Start: 03-08-2011 Tobacco use and exposure Smoke less tobacco non-user [facility] Start: 11-03-2021 End: 08-22-2023 Alcohol intake Current non-drinker of alcohol (finding) [facility] Start: 1995 Sex Assigned At Not on file [facility] Start: 07-26-2022 End: 08-19-2022 Exposure to SARS-CoV-2 (event) Not sure [facility] Start: 08-19-2022 End: 08-22-2023 History of Social function [facility] Work Phone: Start: 08-19-2022 End: 08-22-2023 Tobacco use panel [facility] Work Phone: Adult Depression Screening Assessment 0 [facility] Work Phone: Start: 11-26-2021 Gender identity Identifies as male gender (finding) [facility] Start: 11-26-2021 Sexual orientation Choose not to dis close [facility] Clinical Notes 04-07-2012 to 10-17-2023 Alexus Ireland MD - 08/22/2023 12:57 PM ESTTelephone Encounter - Kymberly Bragg LPN - 07/25/2023 1:12 PM EDTTelephone Encounter - Alexus Ireland MD - 07/25/2023 12:29 PM EDTPatient Instructions Note Date & Type Note Facility 10-17-2023 Note HNO ID: [id number] Author: ALEXUS IRELAND MD Service: ? Author Type: Physician Type: Progress Notes Filed: 10/17/2023 15:42 Note Text: Patient presents with: GERD HPI: Patient presents today for office visit for follow up. Follow up starting the omeprazole. Did help with the cough he had. Saw Dr Cintron and he wants to do more testing in Nov. Dr Cintron did leave his medication the same though. Had a chest xray that was negative Did get old records from Dr Cintron to review. Bowels are doing well. No fever or chills. No sore throat or ear pain or sinus issues. See previous ov: Does have an occasional cough. Noticed for the past 2-3 months. Comes and goes no real reason for it. Dentist advised him to ask about acid reflux. Did have EGD 10/08/21. Is often during the day. Can occur after laying down. No shortness of breath. No hoarseness or issues swallowing. Does drink caffeine. Has a hx of gastritis. Has seen Dr. Cintron. No issues with bowels. MEDICATIONS: Current Outpatient Medications Medication Sig omeprazole (PRILOSEC) 20 mg capsule Take 1 capsule by mouth daily before breakfast. 1/2 hr before meal. multivitamin tablet Take 1 tablet by mouth once daily. No current facility-administered medications for this visit. ALLERGIES: ALLERGIES No Active Allergies PAST MEDICAL HISTORY Diagnosis Date Acne ADD (attention deficit disorder) PAST SURGICAL HISTORY Procedure Laterality Date COLONOSCOPY FLX DX W/COLLJ SPEC WHEN PFRMD 10/08/2021 ESOPHAGOGASTRODUODENOSCOPY TRANSORAL DIAGNOSTIC 10/08/2021 NONE FAMILY HISTORY Problem Relation Age of Onset Diabetes Maternal Grandfather other (ADHD) Mother Social History Tobacco Use Smoking status: Never Smokeless tobacco: Never Substance Use Topics Alcohol use: No Drug use: No Reviewed current medications, allergies, past medical history, surgical history, family history and social history today. REVIEW OF SYSTEMS All other reviewed and negative other than HPI. HEALTH MAINTENANCE: Reviewed health maintenance issues today and recommended the following in detail. Hepatitis C Screening Never done HIV Screening Never done Depression Assessment due on 2023 VITALS: BP 128/72 Pulse 89 Wt 104.3 kg (230 lb) SpO2 97% BMI 31.15 kg/m? Last 4 Encounter Wt Readings: Date: Wt: 08/22/2023 105.2 kg (232 lb) 08/05/2022 105.7 kg (233 lb) 11/03/2021 98 kg (216 lb) 09/21/2021 97.1 kg (214 lb) PHYSICAL EXAMINATION: General appearance: Well appearing, alert, in no acute distress, well-hydrated, well nourished. Skin: Skin color, texture, turgor normal, no suspicious rashes or lesions Lungs: Lungs clear to auscultation. No wheezing, rhonchi, rales Heart: RRR without murmur, gallop, or rubs. No ectopy Abdomen: Normal abdominal exam, Abdomen soft, non-tender. Bowel sounds normal. No masses, organomegaly Extremities: No deformities, edema, skin discoloration, clubbing or cyanosis. Good capillary refill. ASSESSMENT/PLAN: 1. Gastroesophageal reflux disease without esophagitis - ICD9: 530.81, ICD10: K21.9 (primary diagnosis) - follow progress. 2. Cough, unspecified type - ICD9: 786.2, ICD10: R05.9 - continue meds. See gi. Call if any issues. Red flags for re-assessment reviewed with patient in detail. Alexus Ireland MD [facility] 08-22-2023 Note HNO ID: [id number] Author: Shaila Bond RT(R) Service: Radiology Author Type: Technologist Type: Progress Notes Filed: 08/22/2023 1:39 PM Note Text: Radiology Service Progress Note PATIENT NAME: Demetrius Cochran DATE OF SERVICE: August 22, 2023 TIME: 1:34 PM PATIENT IDENTITY VERIFICATION COMPLETED USING TWO (2) IDENTIFIERS: Name and Date of confirmed by patient verbally. FALL SCREENING: Has the patient had 2 falls in the last year or 1 fall with injury or currently using an Ambulatory Assistive Device (Walker, Cane, Wheelchair, Crutches, etc.)? No PATIENT GENDER DATA: Male PATIENT RELEVANT IMPLANT DATA REVIEWED: Not Applicable RADIOLOGY DEPARTMENT: General X-ray: Exam(s) Completed: Chest X-Ray PERIPHERAL IV DATA: Not applicable SIGNED BY: RT Carri(R) August 22, 2023 1:34 PM [facility] 08-22-2023 Note HNO ID: [id number] Author: Alexus Ireland MD Service: ? Author Type: Physician Type: Progress Notes Filed: 08/22/2023 1:21 PM Note Text: Patient presents with: Physical HPI: Patient presents today for office visit for check up. Physical: Has a form for his insurance to fill out. Does have an occasional cough. Noticed for the past 2-3 months. Comes and goes no real reason for it. Dentist advised him to ask about acid reflux. Did have EGD 10/08/21. Is often during the day. Can occur after laying down. No shortness of breath. No hoarseness or issues swallowing. Does drink caffeine. Has a hx of gastritis. Has seen DrKaia Cintron. No issues with bowels. Component Latest Ref Rng AND Units 08/08/2023 WBC 3.70 - 11.00 k/uL 5.69 RBC 4.20 - 6.00 m/uL 5.24 Hemoglobin 13.0 - 17.0 g/dL 15.1 Hematocrit 39.0 - 51.0 % 43.9 MCV 80.0 - 100.0 fL 83.8 MCH 26.0 - 34.0 pg 28.8 MCHC 30.5 - 36.0 g/dL 34.4 RDW-CV 11.5 - 15.0 % 12.3 Platelet Count 150 - 400 k/uL 245 MPV 9.0 - 12.7 fL 9.8 Neut% % 60.9 Abs Neut (ANC) 1.45 - 7.50 k/uL 3.47 Lymph% % 24.1 Abs Lymph 1.00 - 4.00 k/uL 1.37 Mills% % 12.5 Abs Mills <0.87 k/uL 0.71 Eosin% % 1.4 Abs Eosin <0.46 k/uL 0.08 Baso% % 0.9 Abs Baso <0.11 k/uL 0.05 Immature Gran % % 0.2 IMMATURE GRANS (ABS) <0.10 k/uL <0.03 NRBC /100 WBC 0.0 Absolute nRBC <0.01 k/uL <0.01 DTYPE Auto Protein, Total 6.3 - 8.0 g/dL 7.0 Albumin 3.9 - 4.9 g/dL 4.4 Calcium 8.5 - 10.2 mg/dL 9.3 Bilirubin, Total 0.2 - 1.3 mg/dL 0.4 Alkaline Phosphatase 38 - 113 U/L 76 AST 14 - 40 U/L 22 ALT 10 - 54 U/L 24 Glucose 74 - 99 mg/dL 86 BUN 9 - 24 mg/dL 13 Creatinine 0.73 - 1.22 mg/dL 0.69 (L) Sodium 136 - 144 mmol/L 140 Potassium 3.7 - 5.1 mmol/L 4.4 Chloride 97 - 105 mmol/L 106 (H) CO2 22 - 30 mmol/L 22 Anion Gap 9 - 18 mmol/L 12 eGFR >=60 mL/min/1.73mA? 131 Cholesterol, Total <200 mg/dL 183 Triglyceride <150 mg/dL 54 HDL Cholesterol >39 mg/dL 44 Non HDL Cholesterol <130 mg/dL 139 (H) Fasting Time hrs 12 VLDL Cholesterol <30 mg/dL 11 TC:HDL Ratio <5.10 4.16 LDL Cholesterol <100 mg/dL 128 (H) LDL:HDL Ratio <2.54 2.91 (H) MEDICATIONS: Current Outpatient Medications Medication Sig multivitamin tablet Take 1 tablet by mouth once daily. No current facility-administered medications for this visit. ALLERGIES: ALLERGIES Allergen Reactions Environmental [Othe* PAST MEDICAL HISTORY Diagnosis Date Acne ADD (attention deficit disorder) PAST SURGICAL HISTORY Procedure Laterality Date COLONOSCOPY FLX DX W/COLLJ SPEC WHEN PFRMD 10/08/2021 ESOPHAGOGASTRODUODENOSCOPY TRANSORAL DIAGNOSTIC 10/08/2021 NONE FAMILY HISTORY Problem Relation Age of Onset Diabetes Maternal Grandfather other (ADHD) Mother Social History Tobacco Use Smoking status: Never Smokeless tobacco: Never Substance Use Topics Alcohol use: No Drug use: No Reviewed current medications, allergies, past medical history, surgical history, family history and social history today. REVIEW OF SYSTEMS HEENT: Negative for frequent or significant headaches, No changes in hearing or vision, no nose bleeds or other nasal problems NECK: Negative for lumps, goiter, pain and significant neck swelling CARDIOVASCULAR: Negative for chest pain, leg swelling, hypertension, CHF or palpitations : No history of dysuria, frequency or incontinence SKIN: Negative for lesions, rash, and itching All other reviewed and negative other than HPI. HEALTH MAINTENANCE: Reviewed health maintenance issues today and recommended the following in detail. Meningococcal B Vaccine: Consider Based On Risk(1 of 4 - Increased Risk) Never done Hepatitis C Screening Never done HIV Screening Never done Hepatitis A Vaccine(1 of 2 - Risk 2-dose series) Never done Depression Assessment due on 2022 VITALS: BP 122/62 Pulse 96 Wt 105.2 kg (232 lb) SpO2 98% BMI 31.42 kg/m? Last 4 Encounter Wt Readings: Date: Wt: 08/05/2022 105.7 kg (233 lb) 11/03/2021 98 kg (216 lb) 09/21/2021 97.1 kg (214 lb) 09/18/2021 98.9 kg (218 lb) PHYSICAL EXAMINATION: General appearance: Well appearing, alert, in no acute distress, well-hydrated, well nourished. Skin: Skin color, texture, turgor normal, no suspicious rashes or lesions Head: Normocephalic, no masses, lesions, tenderness or abnormalities Eyes: Anicteric sclera. Pupils are equally round and reactive to light. Extraocular movements are intact. Ears: External ears normal, canals clear Nose/Sinuses: Nares normal, septum midline, mucosa normal, no drainage or sinus tenderness Oropharynx: Lips, mucosa, and tongue normal, teeth and gums normal, oropharynx normal Neck: Supple, no adenopathy; thyroid symmetric, normal size, no bruits Lungs: Lungs clear to auscultation. No wheezing, rhonchi, rales Heart: RRR without murmur, gallop, or rubs. No ectopy Abdomen: Normal abdominal exam, Abdomen soft, non-tender. Bowel so (more content not included)... [facility] 08-22-2023 History of Presen t illness Narrative Patient presents with: Physical HPI: Patient presents today for office visit for check up. Physical: Has a form for his insurance to fill out. Does have an occasional cough. Noticed for the past 2-3 months. Comes and goes no real reason for it. Dentist advised him to ask about acid reflux. Did have EGD 10/08/21. Is often during the day. Can occur after laying down. No shortness of breath. No hoarseness or issues swallowing. Does drink caffeine. Has a hx of gastritis. Has seen Dr. Abdulaziz. No issues with bowels. Component Latest Ref Rng & Units 08/08/2023 WBC 3.70 - 11.00 k/uL 5.69 RBC 4.20 - 6.00 m/uL 5.24 Hemoglobin 13.0 - 17.0 g/dL 15.1 Hematocrit 39.0 - 51.0 % 43.9 MCV 80.0 - 100.0 fL 83.8 MCH 26.0 - 34.0 pg 28.8 MCHC 30.5 - 36.0 g/dL 34.4 RDW-CV 11.5 - 15.0 % 12.3 Platelet Count 150 - 400 k/uL 245 MPV 9.0 - 12.7 fL 9.8 Neut% % 60.9 Abs Neut (ANC) 1.45 - 7.50 k/uL 3.47 Lymph% % 24.1 Abs Lymph 1.00 - 4.00 k/uL 1.37 Mills% % 12.5 Abs Mills <0.87 k/uL 0.71 Eosin% % 1.4 Abs Eosin <0.46 k/uL 0.08 Baso% % 0.9 Abs Baso <0.11 k/uL 0.05 Immature Gran % % 0.2 IMMATURE GRANS (ABS) <0.10 k/uL <0.03 NRBC /100 WBC 0.0 Absolute nRBC <0.01 k/uL <0.01 DTYPE Auto Protein, Total 6.3 - 8.0 g/dL 7.0 Albumin 3.9 - 4.9 g/dL 4.4 Calcium 8.5 - 10.2 mg/dL 9.3 Bilirubin, Total 0.2 - 1.3 mg/dL 0.4 Alkaline Phosphatase 38 - 113 U/L 76 AST 14 - 40 U/L 22 ALT 10 - 54 U/L 24 Glucose 74 - 99 mg/dL 86 BUN 9 - 24 mg/dL 13 Creatinine 0.73 - 1.22 mg/dL 0.69 (L) Sodium 136 - 144 mmol/L 140 Potassium 3.7 - 5.1 mmol/L 4.4 Chloride 97 - 105 mmol/L 106 (H) CO2 22 - 30 mmol/L 22 Anion Gap 9 - 18 mmol/L 12 eGFR >=60 mL/min/1.73m 131 Cholesterol, Total <200 mg/dL 183 Triglyceride <150 mg/dL 54 HDL Cholesterol >39 mg/dL 44 Non HDL Cholesterol <130 mg/dL 139 (H) Fasting Time hrs 12 VLDL Cholesterol <30 mg/dL 11 TC:HDL Ratio <5.10 4.16 LDL Cholesterol <100 mg/dL 128 (H) LDL:HDL Ratio <2.54 2.91 (H) MEDICATIONS: Current Outpatient Medications Medication Sig multivitamin tablet Take 1 tablet by mouth once daily. No current facility-administered medications for this visit. ALLERGIES: ALLERGIES Allergen Reactions Environmental [Othe* PAST MEDICAL HISTORY Diagnosis Date Acne ADD (attention deficit disorder) PAST SURGICAL HISTORY Procedure Laterality Date COLONOSCOPY FLX DX W/COLLJ SPEC WHEN PFRMD 10/08/2021 ESOPHAGOGASTRODUODENOSCOPY TRANSORAL DIAGNOSTIC 10/08/2021 NONE FAMILY HISTORY Problem Relation Age of Onset Diabetes Maternal Grandfather other (ADHD) Mother Social History Tobacco Use Smoking status: Never Smokeless tobacco: Never Substance Use Topics Alcohol use: No Drug use: No Reviewed current medications, allergies, past medical history, surgical history, family history and social history today. REVIEW OF SYSTEMS HEENT: Negative for frequent or significant headaches, No changes in hearing or vision, no nose bleeds or other nasal problems NECK: Negative for lumps, goiter, pain and significant neck swelling CARDIOVASCULAR: Negative for chest pain, leg swelling, hypertension, CHF or palpitations : No history of dysuria, frequency or incontinence SKIN: Negative for lesions, rash, and itching All other reviewed and negative other than HPI. HEALTH MAINTENANCE: Reviewed health maintenance issues today and recommended the following in detail. Meningococcal B Vaccine: Consider Based On Risk(1 of 4 - Increased Risk) Never done Hepatitis C Screening Never done HIV Screening Never done Hepatitis A Vaccine(1 of 2 - Risk 2-dose series) Never done Depression Assessment due on 2022 VITALS: BP 122/62 Pulse 96 Wt 105.2 kg (232 lb) SpO2 98% BMI 31.42 kg/m Last 4 Encounter Wt Readings: Date: Wt: 08/05/2022 105.7 kg (233 lb) 11/03/2021 98 kg (216 lb) 09/21/2021 97.1 kg (214 lb) 09/18/2021 98.9 kg (218 lb) PHYSICAL EXAMINATION: General appearance: Well appearing, alert, in no acute distress, well-hydrated, well nourished. Skin: Skin color, texture, turgor normal, no suspicious rashes or lesions Head: Normocephalic, no masses, lesions, tenderness or abnormalities Eyes: Anicteric sclera. Pupils are equally round and reactive to light. Extraocular movements are intact. Ears: External ears normal, canals clear Nose/Sinuses: Nares normal, septum midline, mucosa normal, no drainage or sinus tenderness Oropharynx: Lips, mucosa, and tongue normal, teeth and gums normal, oropharynx normal Neck: Supple, no adenopathy; thyroid symmetric, normal size, no bruits Lungs: Lungs clear to auscultation. No wheezing, rhonchi, rales Heart: RRR without murmur, gallop, or rubs. No ectopy Abdomen: Normal abdominal exam, Abdomen soft, non-tender. Bowel sounds normal. No masses, organomegaly Extremities: No deformities, edema, skin discoloration, clubbing or cyanosis. Good capillary refill. Musculoskeletal: No joint swelling, deformity, or tenderness Peripheral pulses: Normal Neuro: Negative. ASSESSMENT/PLAN: 1. Well adult exam - ICD9: V70.0, ICD10: Z00.00 (primary diagnosis) - Counseled on healthy diet and regular exercise 2. Chronic cough - ICD9: 786.2, ICD10: R05.3 - Discussed risks and benefits of new medication with the patient. Advised them to call if any side effects or questions. - XR CHEST 2V FRONTAL/LAT - OMEPRAZOLE 20 MG CAPSULE,DELAYED RELEASE Alexus Ireland MD documented in this encounter [facility] 07-25-2023 Miscellaneous Notes Pt notified of same. Kymberly Bragg LPN Orders placed Patient call and states that he has annual scheduled on 08/22/2023. Patient asking for labs to be placed so that he can get done prior to appointment. Carolyne Nur RN documented in this encounter [facility] 03-28-2023 Note HNO ID: [id number] Author: Yvrose Willis PA-C Service: ? Author Type: Physician Pitting Machine Operator Type: Progress Notes Filed: 03/28/2023 11:40 AM Note Text: This note was created using [employer]. Subjective Demetrius Cochran is a 27 year old male. HPI Patient presents with a chief complaint of left ear feeling clogged for 2 weeks. This past weekend 2 to 3 days ago he went swimming and it felt even more clogged so he came in for evaluation. No cough or congestion. No runny nose. No sore throat. No drainage from his ear. No fever. Review of Systems HENT: Positive for hearing loss. Negative for congestion, ear discharge, ear pain, rhinorrhea and sore throat. Ears feeling clogged Respiratory: Negative. Cardiovascular: Negative. Gastrointestinal: Negative. All other systems reviewed and are negative. PAST MEDICAL HISTORY Diagnosis Date Acne ADD (attention deficit disorder) Current Outpatient Medications Medication Sig Dispense Refill multivitamin tablet Take 1 tablet by mouth once daily. No current facility-administered medications for this visit. PAST SURGICAL HISTORY Procedure Laterality Date COLONOSCOPY FLX DX W/COLLJ SPEC WHEN PFRMD 10/08/2021 ESOPHAGOGASTRODUODENOSCOPY TRANSORAL DIAGNOSTIC 10/08/2021 NONE FAMILY HISTORY Problem Relation Age of Onset Diabetes Maternal Grandfather other (ADHD) Mother Social History Tobacco Use Smoking status: Never Smokeless tobacco: Never Substance Use Topics Alcohol use: No Drug use: No Objective BP 110/80 Pulse 82 Temp 36.4 ?C (97.6 ?F) Resp 16 SpO2 97% Physical Exam Vitals reviewed. Constitutional: Appearance: Normal appearance. HENT: Head: Normocephalic and atraumatic. Ears: Comments: Bilateral cerumen impactions. After lavage by nursing staff, cerumen removed and TM intact. Normal middle ear. Skin: General: Skin is warm and dry. Neurological: Mental Status: He is alert. Assessment and Plan ASSESSMENT/PLAN: 1. Bilateral impacted cerumen - ICD9: 380.4, ICD10: H61.23 Flushed by nursing staff and cerumen removed. Patient feels much improved. - AMBULATORY EAR LAVAGE/IRRIGATION Yvrose Willis PA-C [facility] 03-28-2023 History of Presen t illness Narrative This note was created using [employer]. Subjective Demetrius Cochran is a 27 year old male. HPI Patient presents with a chief complaint of left ear feeling clogged for 2 weeks. This past weekend 2 to 3 days ago he went swimming and it felt even more clogged so he came in for evaluation. No cough or congestion. No runny nose. No sore throat. No drainage from his ear. No fever. Review of Systems HENT: Positive for hearing loss. Negative for congestion, ear discharge, ear pain, rhinorrhea and sore throat. Ears feeling clogged Respiratory: Negative. Cardiovascular: Negative. Gastrointestinal: Negative. All other systems reviewed and are negative. PAST MEDICAL HISTORY Diagnosis Date Acne ADD (attention deficit disorder) Current Outpatient Medications Medication Sig Dispense Refill multivitamin tablet Take 1 tablet by mouth once daily. No current facility-administered medications for this visit. PAST SURGICAL HISTORY Procedure Laterality Date COLONOSCOPY FLX DX W/COLLJ SPEC WHEN PFRMD 10/08/2021 ESOPHAGOGASTRODUODENOSCOPY TRANSORAL DIAGNOSTIC 10/08/2021 NONE FAMILY HISTORY Problem Relation Age of Onset Diabetes Maternal Grandfather other (ADHD) Mother Social History Tobacco Use Smoking status: Never Smokeless tobacco: Never Substance Use Topics Alcohol use: No Drug use: No Objective BP 110/80 Pulse 82 Temp 36.4 C (97.6 F) Resp 16 SpO2 97% Physical Exam Vitals reviewed. Constitutional: Appearance: Normal appearance. HENT: Head: Normocephalic and atraumatic. Ears: Comments: Bilateral cerumen impactions. After lavage by nursing staff, cerumen removed and TM intact. Normal middle ear. Skin: General: Skin is warm and dry. Neurological: Mental Status: He is alert. Assessment and Plan ASSESSMENT/PLAN: 1. Bilateral impacted cerumen - ICD9: 380.4, ICD10: H61.23 Flushed by nursing staff and cerumen removed. Patient feels much improved. - AMBULATORY EAR LAVAGE/IRRIGATION Yvrose Willis PA-C documented in this encounter [facility] 03-28-2023 Nurse Note Ambulatory Ear Lavage Pre-treatment: Warm water Treatment: Both ears Equipment and Irrigation solution and Volume used: Single use syringe with single use irrigation tip Return flow appearance: Debris Patient tolerated procedure: yes Tympanic membrane assessment: Tympanic membrane assessed by LIP pre and post procedure Yvrose Willis PA-C documented in this encounter [facility] 08-19-2022 History of Presen t illness Narrative Per Dr. Santa, Demetrius was provided with powerstep original inserts, size 11.5, and instructed/educated in its application, wear, and care. All questions were answered, and patient was able to demonstrate competence with the necessary skills to utilize the above equipment. Hemalatha George LPN Images from the original note were not included. Consultation requested by Dr. Ireland for an opinion regarding left foot pain. My final recommendations will be communicated back to the requesting physician by way of shared Medical record or letter to requesting physician via US mail. Initial Podiatric Office Visit: Chief Complaint: This 26 year old male who presents with chief complaint:left foot pain HPI Patient presents to clinic for evaluation of his left foot. He complains of pian to the top of his left foot, worse when he is on his foot walking around. He states the pain has been present since the summer. He denies any injury. He has tried warm water soaks with epsom salts but that has not helped. Patient has tried tylenol intermittently but that has not really helped. PAIN EVALUATION 08/19/2022 1528 Pain Level: 6 Pain Location: Foot-Left Description: Aching;Sharp Duration Amount of Time: 6 Duration Units: Months Frequency: Intermittent Intervention/Comfort measure: Reposition;Relaxation;Medication ;Heat Tylenol, Bengay Hemoglobin A1C (%) Date Value 04/01/2017 5.1 02/17/2016 5.3 PCP: Alexus Ireland MD PAST MEDICAL HISTORY Diagnosis Date Acne ADD (attention deficit disorder) Current Outpatient Medications Medication Sig multivitamin tablet Take 1 tablet by mouth once daily. No current facility-administered medications for this visit. ALLERGIES Allergen Reactions Environmental [Othe* PAST SURGICAL HISTORY Procedure Laterality Date COLONOSCOPY FLX DX W/COLLJ SPEC WHEN PFRMD 10/08/2021 ESOPHAGOGASTRODUODENOSCOPY TRANSORAL DIAGNOSTIC 10/08/2021 NONE FAMILY HISTORY Problem Relation Age of Onset Diabetes Maternal Grandfather other (ADHD) Mother Social History Tobacco Use Smoking status: Never Smokeless tobacco: Never Substance Use Topics Alcohol use: No Drug use: No REVIEW OF SYSTEMS GENERAL: Negative for Malaise, significant weight loss, fever RESPIRATORY: Negative for cough, wheezing and shortness of breath CARDIOVASCULAR: Negative for chest pain, leg swelling and palpitations GI: Negative for abdominal discomfort, blood in stools or black stools and change in bowel habits : Negative for dysuria, frequency and incontinence MUSCULOSKELETAL: Negative for joint pain or swelling, back pain, and muscle pain. SKIN: Negative for lesions, rash, and itching. HEMATOLOGY/LYMPHOLOGY Negative for prolonged bleeding, bruising easily, and swollen nodes. ENDOCRINE: Negative for cold or heat intolerance, polyuria, polydipsia and goiter. NEURO: negative Physical Exam: Constitutional: Pt is a well developed 26 year old male who is alert, oriented and cooperative Eyes: Following during examination. No redness or drainage. Respiratory: RR normal and nonlabored. Even breathing. No evidence of distress or shortness of breath. Psychology: Patient is engaged during conversation. Normal affect and mood. Does not appear depressed or anxious during encounter. Vascular: Dorsalis pedis and posterior tibial pulses palpable as b/l Capillary Fill time < 5 seconds to digits 1-5 b/l Skin temperature warm to warm proximal to distal b/l Hair growth present to digits Neurological: intact light touch/epicritic sensation b/l intact protective sensation no significant neurological deficits Dermatological: Nails 1-5 b/l appear normal. Webspaces clean and dry 1-4 b/l. Skin appears well hydrated and supple. good color, texture, turgor. No open lesions present. No callosities present. Musculoskeletal/Orthopaedic: Patient has pain to palpation of left 4th metatarsal shaft Foot type is neutral structurally AJ ROM is full with knee extended and flexed 1st MPJ is full when loaded and no pain or crepitus are noted with ROM. MTJ, STJ are full and free of pain and crepitus. +5/5 muscle strength dorsiflexion, plantarflexion, inversion, eversion b/l Radiographs: 3 views left foot reviewed August 19, 2022: I have personally reviewed and interpreted these XR myself: no acute fracture. No stress fracture ASSESSMENT: (M79.322) Foot pain, left PLAN: 1. History and physical examination performed. 2. XR reviewed with patient and interpreted today 3. No acute fracture or stress fracture present. 4. Will try inserts. 5. If pain fails to improve, consider boot. Mamadou Santa DPM Podiatry [address] [facility] [address] Dept: [phone] Dept AMB ROOMING INTAKE FLOWSHEET DATA Pain Pain Level: 6 Pain Location: Foot-Left Description: Aching, Sharp Duration Amount of Time: 6 Duration Units: Months Frequency: Intermittent Intervention/Comfort measure: Reposition, Relaxation, Medication, Heat (Tylenol, Bengay) Patient presents with: Left Foot - New Patient, Pain Patient c/o pain to top of L foot since the summer. No injury. Has tried Tylenol, topical Bengay without relief. documented in this encounter [facility] 08-19-2022 Instructions Mamadou Santa - 08/19/2022 3:45 PM EST Powerstep Original Full length. Can purchase at [employer] here in [place], [employer] in [place] or [place]. Also can find in [place] in [facility]. Powersteps can also be purchased online, starting around $25.00 If you have a metatarsal or dancer pad for your feet apply the pad directly to the insole so you can interchange between your shoes. Find a shoe with a removable insole and take this out and replace with your powerstep insole. Always bring powersteps with you when shopping for shoes so that you can make sure that everything fits well together documented in this encounter [facility] 08-05-2022 History of Presen t illness Narrative Patient presents with: Foot Pain (Midfoot): Left Immunizations: Flu vaccination HPI: Patient presents today for office visit for physical has a form to complete for insurance. Some left foot pain on and off. States for a couple of months especially when has been up on it after working. No trauma. ? Occasionally red or warm. Seeing Dr Friend and diagnosed with ulcerative colitis. Had some labs completed but not heard back about results yet(see scanned documents). Stomach is stable. No longer on ritalin. Did not really help. Component Latest Ref Rng & Units 07/14/2022 WBC 3.70 - 11.00 k/uL 5.18 RBC 4.20 - 6.00 m/uL 5.14 Hemoglobin 13.0 - 17.0 g/dL 14.8 Hematocrit 39.0 - 51.0 % 45.3 MCV 80.0 - 100.0 fL 88.1 MCH 26.0 - 34.0 pg 28.8 MCHC 30.5 - 36.0 g/dL 32.7 RDW-CV 11.5 - 15.0 % 12.8 Platelet Count 150 - 400 k/uL 205 MPV 9.0 - 12.7 fL 10.2 Neut% % 71.1 Abs Neut (ANC) 1.45 - 7.50 k/uL 3.69 Lymph% % 14.9 Abs Lymph 1.00 - 4.00 k/uL 0.77 (L) Mills% % 12.4 Abs Mills <0.87 k/uL 0.64 Eosin% % 0.8 Abs Eosin <0.46 k/uL 0.04 Baso% % 0.6 Abs Baso <0.11 k/uL 0.03 Immature Gran % % 0.2 IMMATURE GRANS (ABS) <0.10 k/uL <0.03 NRBC /100 WBC 0.0 Absolute nRBC <0.01 k/uL <0.01 DTYPE Auto Protein, Total 6.3 - 8.0 g/dL 6.9 Albumin 3.9 - 4.9 g/dL 4.6 Calcium 8.5 - 10.2 mg/dL 9.1 Bilirubin, Total 0.2 - 1.3 mg/dL 0.5 Alkaline Phosphatase 38 - 113 U/L 67 AST 14 - 40 U/L 30 ALT 10 - 54 U/L 40 Glucose 74 - 99 mg/dL 88 BUN 9 - 24 mg/dL 14 Creatinine 0.73 - 1.22 mg/dL 0.77 Sodium 136 - 144 mmol/L 140 Potassium 3.7 - 5.1 mmol/L 4.2 Chloride 97 - 105 mmol/L 105 CO2 22 - 30 mmol/L 26 Anion Gap 9 - 18 mmol/L 9 eGFR >=60 mL/min/1.73m 127 Cholesterol, Total <200 mg/dL 219 (H) Triglyceride <150 mg/dL 71 HDL Cholesterol >39 mg/dL 51 Non HDL Cholesterol <130 mg/dL 168 (H) Fasting Time hrs 14 VLDL Cholesterol <30 mg/dL 14 TC:HDL Ratio <5.10 4.29 LDL Cholesterol <100 mg/dL 154 (H) LDL:HDL Ratio <2.54 3.02 (H) Phencyclidine Negative Negative Benzodiazepines Urine Negative Negative Cocaine Urine Negative Negative Amphetamines Negative Negative Cannabinoids, Urine Negative Negative Opiates Negative Negative Barbiturates Negative Negative Ethanol, Urine <11 mg/dL <11 Oxycodone, Urine Negative Negative MEDICATIONS: Current Outpatient Medications Medication Sig multivitamin tablet Take 1 tablet by mouth once daily. ascorbic acid (VITAMIN C ORAL) Take by mouth. peg 3350-Electrolytes (GOLYTELY) 236-22.74-6.74 -5.86 gram suspension Refer to printed prep instructions from your provider. methylphenidate LA (RITALIN LA) 10 mg 24 hr capsule Take 1 capsule by mouth once daily for 30 days. methylphenidate LA (RITALIN LA) 10 mg 24 hr capsule Take 1 capsule by mouth once daily for 30 days. Do not start before September 05, 2021. No current facility-administered medications for this visit. ALLERGIES: ALLERGIES Allergen Reactions Environmental [Othe* PAST MEDICAL HISTORY Diagnosis Date Acne ADD (attention deficit disorder) PAST SURGICAL HISTORY Procedure Laterality Date COLONOSCOPY FLX DX W/COLLJ SPEC WHEN PFRMD 10/08/2021 ESOPHAGOGASTRODUODENOSCOPY TRANSORAL DIAGNOSTIC 10/08/2021 NONE FAMILY HISTORY Problem Relation Age of Onset Diabetes Maternal Grandfather other (ADHD) Mother Social History Tobacco Use Smoking status: Never Smokeless tobacco: Never Substance Use Topics Alcohol use: No Drug use: No Reviewed current medications, allergies, past medical history, surgical history, family history and social history today. REVIEW OF SYSTEMS RESPIRATORY: Negative for cough, hemoptysis, wheezing, COPD, dyspnea or shortness of breath CARDIOVASCULAR: Negative for chest pain, leg swelling, hypertension, CHF or palpitations : No history of dysuria, frequency or incontinence PSYCH: Negative for sleep disturbance, mood disorder and recent psychosocial stressors All other reviewed and negative other than HPI. HEALTH MAINTENANCE: Reviewed health maintenance issues today and recommended the following in detail. HEPATITIS C SCREENING Never done HIV SCREENING Never done DEPRESSION ASSESSMENT Never done INFLUENZA(1) due on 06/03/2022 COVID-19 VACCINE(5 - Booster for Pfizer series) due on 06/28/2022 VITALS: BP 118/82 Pulse 85 Ht 183 cm (6' 0.05 ) Wt 105.7 kg (233 lb) SpO2 96% BMI 31.56 kg/m Last 4 Encounter Wt Readings: Date: Wt: 08/05/2022 105.7 kg (233 lb) 11/03/2021 98 kg (216 lb) 09/21/2021 97.1 kg (214 lb) 09/18/2021 98.9 kg (218 lb) PHYSICAL EXAMINATION: General appearance: Well appearing, alert, in no acute distress, well-hydrated, well nourished. Skin: Skin color, texture, turgor normal, no suspicious rashes or lesions Head: Normocephalic, no masses, lesions, tenderness or abnormalities Eyes: Anicteric sclera. Pupils are equally round and reactive to light. Extraocular movements are intact. Neck: Supple, no adenopathy Lungs: Lungs clear to auscultation. No wheezing, rhonchi, rales Heart: RRR without murmur, gallop, or rubs. No ectopy Abdomen: Normal abdominal exam, Abdomen soft, non-tender. Bowel sounds normal. No masses, organomegaly Extremities: No deformities, edema, skin discoloration, clubbing or cyanosis. Good capillary refill. Musculoskeletal: No joint swelling, deformity, or tenderness. Tender over the dorsum of the foot. Peripheral pulses: Normal Neuro: Negative. ASSESSMENT/PLAN: 1. Well adult exam - ICD9: V70.0, ICD10: Z00.00 (primary diagnosis) - forms completed. 2. Need for influenza vaccination - ICD9: V04.81, ICD10: Z23 - INFLUENZA VACCINE QUADRIVALENT 6 MO - 64 YRS IM 3. Ulcerative pancolitis without complication (HCC) - ICD9: 556.6, ICD10: K51.00 - per gi 4. Foot pain, left - ICD9: 729.5, ICD10: M79.672 - continue to wear good foot wear. Get xray and see podiatry. - XR FOOT GENERAL 3V AP/LAT/OBL LEFT - CONSULT TO PODIATRY Alexus Ireland documented in this encounter [facility] 07-20-2022 Miscellaneous Notes Patient contacted via telephone & r/s appointment for 08/05 @ 1pm. Sarah Khan MA documented in this encounter [facility] documented as of this encounter (statuses as of 08/05/2022) [facility] History of Past illness Narrative* Problem Noted Date Resolved Date Neck strain 12/17/2019 08/05/2022 Onychia and paronychia of toe 04/07/2012 Cellulitis and abscess of toe, unspecified 03/1806/19/2018 documented as of this encounter (statuses as of 08/20/2022) [facility] History of Past illness Narrative* Problem Noted Date Resolved Date Neck strain 12/17/2019 08/05/2022 Onychia and paronychia of toe 04/07/2012 Cellulitis and abscess of toe, unspecified 03/1806/19/2018 documented as of this encounter (statuses as of 03/28/2023) [facility] History of Past illness Narrative* Problem Noted Date Diagnosed Date Resolved Date Neck strain 12/17/2019 08/05/2022 Onychia and paronychia of toe 04/07/2012 06/19/2018 Cellulitis and abscess of toe, unspecified 03/18/2011 06/19/2018 documented as of this encounter (statuses as of 05/17/2023) [facility] History of Past illness Narrative* Problem Noted Date Diagnosed Date Resolved Date Neck strain 12/17/2019 08/05/2022 Onychia and paronychia of toe 04/07/2012 06/19/2018 Cellulitis and abscess of toe, unspecified 03/18/2011 06/19/2018 documented as of this encounter (statuses as of 07/25/2023) [address]16-2020 History of Past illness Narrative* Problem Noted Date Diagnosed Date Resolved Date Neck strain 12/17/2019 08/05/2022 Onychia and paronychia of toe 04/07/2012 06/19/2018 Cellulitis and abscess of toe, unspecified 03/18/2011 06/19/2018 documented as of this encounter (statuses as of 08/23/2023) [facility] History of Past illness Narrative* Problem Noted Date Resolved Date Onychia and paronychia of toe 04/07/2012 Cellulitis and abscess of toe, unspecified 03/1806/19/2018 documented as of this encounter (statuses as of 07/20/2022) [facility] Diagnosis Well adult exam- Primary Routine general medical examination at a health care facility Need for influenza vaccination Need for prophylactic vaccination and inoculation against influenza Ulcerative pancolitis without complication (HCC) Foot pain, left Pain in limb [facility] Diagnosis Foot pain, left Pain in limb [facility] Diagnosis Bilateral impacted cerumen- Primary Impacted cerumen [facility] Diagnosis Well adult exam- Primary Routine general medical examination at a health care facility [facility] Diagnosis Well adult exam- Primary Routine general medical examination at a health care facility Chronic cough Cough documented in this encounter [facility] Summary Purpose Family History No Family History Records FoundNo Family History Records Found Advance Directives No Advanced Directives Records FoundNo Advanced Directives Records Found Health Concerns Infection Onset Date Last Indicated Resolved Time COVID-19 Confirmed 07/19/2022 07/19/2022 Reason for Referral Specialty Diagnoses / Procedures Referred By Philip macias Referred To Contact Podiatry Diagnoses Foot pain, left Procedures CONSULT TO PODIATRY OFFICE/OUTPATIENT [facility] MDM 60-74 MINUTES Alexus Ireland MD [address] [place] [address] Referral ID Status Reason Start Date Expiration Date Visits Requested Visits Authorized [id number] Authorized PCP Requested Referral 08/05/2022 08/05/2023 1 1 Specialty Diagnoses / Procedures Referred By Philip t Referred To Contact XR IMAGING Diagnoses Foot pain, left Procedures XR FOOT GENERAL 3V AP/LAT/OBL LEFT RADEX FOOT COMPLETE MINIMUM 3 VIEWS Alexus Ireland MD [address] [place] [address] Xr Imaging Referral ID Status Reason Start Date Expiration Date V isits Requested Visits Authorized [id number] Closed Auto-Generate d Referral 08/05/2022 09/04/2023 1 1 Additional Source Comments (unrecognized sect ion and content) No Status Records FoundNo Status Records Found INFORMATION SOURCE (unrecogn ized section and content) DATE CREATED AUTHOR AUTHOR'S AMADO MARTI 10/22/2023 [facility] Source Comments (unrecognize d section and content) In the event this informatio n is protected by the Federal Confidentiality of Alcohol and Drug Abuse Patient Records regulations: The Federal rules restrict any use of the information to criminally investigate or prosecute any alcohol or drug abuse patient.[facility] the event this information is protected by the Federal Confidentiality of Alcohol and Drug Abuse Patient Records regulations: The Federal rules restrict any use of the information to criminally investigate or prosecute any alcohol or drug abuse patient.[facility] the event this information is protected by the Federal Confidentiality of Alcohol and Drug Abuse Patient Records regulations: The Federal rules restrict any use of the information to criminally investigate or prosecute any alcohol or drug abuse patient.[facility] the event this information is protected by the Federal Confidentiality of Alcohol and Drug Abuse Patient Records regulations: The Federal rules restrict any use of the information to criminally investigate or prosecute any alcohol or drug abuse patient.[facility] Hospital[facility] the event this information is protected by the Federal Confidentiality of Alcohol and Drug Abuse Patient Records regulations: The Federal rules restrict any use of the information to criminally investigate or prosecute any alcohol or drug abuse patient.[facility] Hospital[facility] the event this information is protected by the Federal Confidentiality of Alcohol and Drug Abuse Patient Records regulations: The Federal rules restrict any use of the information to criminally investigate or prosecute any alcohol or drug abuse patient.[facility] Hospital[facility] the event this information is protected by the Federal Confidentiality of Alcohol and Drug Abuse Patient Records regulations: The Federal rules restrict any use of the information to criminally investigate or prosecute any alcohol or drug abuse patient.[facility] Care Teams (unrecognized sec tion and content) Ordnance Keeper Relationship Specialty Start Date End Date Alexus Ireland MD [address], [place] [id number] PCP - General [facility] Medicine 12/31/14 Ordnance Keeper Relationship Specialty Start Date End Date Alexus Ireland MD [address], [place] [id number] PCP - General [facility] Medicine 12/31/14 Ordnance Keeper Relationship Specialty Start Date End Date Alexus Ireland MD [address], [place] [id number] PCP - General [facility] Medicine 12/31/14 Ordnance Keeper Relationship Specialty Start Date End Date Alexus Ireland MD [address], [place] [id number] PCP - General [facility] Medicine 12/31/14 Ordnance Keeper Relationship Specialty Start Date End Date Alexus Ireland MD [address], [place] [id number] PCP - General Family Medicine 12/31/14 Reason for Visit (unrecogniz ed section and content) Reason Comments New Patient Pain Specialty Diagnoses / Procedures Referred By Contsaeed t Referred To Contact Podiatry Diagnoses Foot pain, left Procedures CONSULT TO PODIATRY OFFICE/OUTPATIENT NEW HIGH MDM 60-74 MINUTES Alexus Ireland MD [address] [place] [address] Referral ID Status Reason Start Date Expiration Date V isits Requested Visits Authorized [id number] Closed PCP Requested Referral 08/05/2022 08/05/2023 1 1 Reason Comments Lab Orders Reason Comments Physical FOR RECORDS PERTAINING TO PATIENTS WHO ARE OR HAVE BEEN ENROLLED IN A CHEMICAL DEPENDENCY/SUBSTANCEABUSE PROGRAM, SOME INFORMATION MAY BE OMITTED. This clinical summary was aggregated from multiple sources. Caution should be exercised in using it in the provision of clinical care. This summary normalizes information from multiple sources, and as a consequence, information in this document may materially change the coding, format and clinical context of patient data. In addition, data may be omitted in some cases. CLINICAL DECISIONS SHOULD BE BASED ON THE PRIMARY CLINICAL RECORDS. [facility]. provides no warranty or guarantee of the accuracy or completeness of information in this document.
[2023-11-09] MEDS: Lactated Ringers 1,000 ML 15 ML IV (06:31)
--- NOTE | 2023-11-09 06:33 | PCM.HP.BLA ---
History and Physical Date of Admission: 11/09/23 28 M who presents to the office today for a follow-up visit. Prior workup: ? EGD and colonoscopy 10.08.21 EGD gastritis; small hiatal hernia ? Colonoscopy diffuse moderate inflammation, chronic active colitis, IBD. *[facility] established 07.08.22 with referral from [facility] for further management as that location will be closing. End of 2020 he began having diarrhea with progressed in severity and frequency over a month and later involved blood and abdominal pain. Colonoscopy performed by Dr. Barth with [facility] for complaint of abdominal pain, urgent watery and bloody diarrhea 10-15 times a day, nausea and vomiting. He was started of sulfasalazine 500mg BID and this was helpful with symptoms. EGD and colonoscopy 10.08.21 with poor prep with diffuse moderate inflammation with erythema, friability, granularity, mucous and moderate chronic active colitis consistent with UC. When seen by [facility] 12.11.21 he was having 2-3 BM a day of normal consistency without bleeding or abdominal pain. This is the first episode of symptoms he has had. ? Biochemical TB, hepatitis, AJIT, IgGM, celiac, GABRIELLA comp, ESR, CBC, LDH, CRP, CMP without pertinent abnormality. IBD profile not suggestive of IBD. IgA L50, IgE L3, p-ANCA H1:20.? Stool testing calprotectin, lactoferrin, fecal fat, enteric pathogen, C.Difficile (cancelled) WNL. ? Elastase L147 Biochemical ESR and CRP WNL. Stool Ova/parasite, giardia WNL OV 10.14.22 Gilberto feels that since August (following a flu immunization) he was having and upset stomach and loose stools for approximately a week and these spontaneously resolved. Continue probiotics OV 04.18.23 with ongoing use of probiotics reporting reduction of symptoms though continues to have mild loose stools monthly ? Biochemical CBC, CMP, ESR, CRP, amylase, lipase without pertinent abnormality. Contact 04.20.23 with results; no concerns at this time. OV 1..24 feels he is doing well with normal BM each day; feels he may have some increased flatulence which may be related to recent holiday diet changes. ROS Const Constitutional: Positive for fatigue; No fever(s), frequent falls, headache(s) or weight change ENT ENT: No headache(s) or difficulty swallowing Cardio Cardiology: No leg pain with exertion Gastro GI: No abdominal pain, bloating, change in bowel habits, constipation, diarrhea, heartburn, difficulty swallowing, Vomiting blood/hematemesis, Blood in stool, nausea/dyspepsia or vomiting Musc Musculoskeletal: No abnormal gait, joint pain, back pain, joint swelling, muscle cramps, muscle weakness, numbness, stiffness, tingling, Arthritis, sciatica, leg pain at night or leg pain with exertion Skin Skin: No dry skin, lesions, itchy eyes or rash Neuro Neurology: No abnormal gait, dizziness, frequent falls, headache(s), numbness, tingling, tremor(s), Increased tone in limbs, paralysis or seizures Psych Psychiatric: No anxiety, No depression, No paranoia, No Behavioral Problems, No Compulsive Behavior, No hyperactivity, No inattentiveness, No obsessions/compulsions, Positive for Temper Tantrums and No suicidal ideation Endo Endocrine: Positive for fatigue; No weight change Aller/Imm Allergy/Immunologic: No itchy eyes Sean/Lymp Hematologic/Lymphatic: No easy bleeding or easy bruising Exam Const General: cooperative and comfortable Nutritional Appearance: average body habitus and well nourished [facility] Head: normal to inspection Ears: hearing grossly normal bilaterally Nose: external nose normal Face and sinus: normal facial exam Mouth: oral mucosae normal Throat: posterior oropharynx normal Eyes General: appearance normal, both eyes and all related structures Neck Neck: normal visual inspection Chest Chest palpation & inspection: normal inspection of the chest and normal palpation of entire chest wall Resp Effort & Inspection: normal respiratory effort Auscultation: Bilateral: Clear to Auscultation Cardio Palpation: normal PMI Rate: regular rate Rhythm: regular rhythm GI Inspection: normal to inspection Auscultation: normal bowel sounds Percussion: normal to percussion Palpation: no hepatosplenomegaly Skin General: no rashes or lesions noted Neuro General: patient alert Extrem General: normal to inspection Psych Affect: normal affect Quality Reporting Tobacco Screening ([facility] 138) Smoking Status: Never smoker Assessment and Plan Assessment and Plan (1) Ulcerative colitis: Status: Chronic Qualifiers: Digestive disease complication type: without complication Ulcerative colitis location: ulcerative pancolitis Qualified Code(s): K51.00 - Ulcerative (chronic) pancolitis without complications Plan: He is doing very well and regarding his ulcerative colitis. His IBD SGI analysis for inflammatory bowel disease was negative for also colitis. His ANCA antibody was only 1 out of 20. He is not having any diarrhea and is actually doing very well. I think he has a nonspecific colitis at this time. I would not give him the full diagnosis of ulcerative colitis. Therefore I am only recommending probiotics on a daily basis due to the fact that he has a very low IgA level which is his chief immune system for his GI tract. We will repeat his stool studies along with colonoscopy to further evaluate the entire colon with biopsies. (2) GERD (gastroesophageal reflux disease): Status: Acute Qualifiers: Esophagitis presence: esophagitis presence not specified Qualified Code(s): K21.9 - Gastro-esophageal reflux disease without esophagitis Plan: He is having signs and symptoms of atypical gastroesophageal reflux disease. I think he should have an normal upper endoscopy to evaluate for H. pylori associated peptic ulcer disease. Medications: Discontinued sulfasalazine (Azulfidine) give with food (meal/snack) Discontinued Reason: Order Completed 0.5 grams PO BID 20 days 40 tabs 0RF I have examined the patient and the H&P has been reviewed. There are no clinical changes since date of exam.
--- NOTE | 2023-11-09 07:21 | OP.CCLET_ITS ---
11/09/2023 Gera Ireland Re : Upper GI endoscopy procedure for Gilberto Light Dear Beka This procedure was performed on Thursday, November 09, 2023. My impressions and recommendations are as follows: Impressions : - Z-line irregular, 39 cm from the incisors. Biopsied. - Normal stomach. - Duodenitis. Biopsied. Recommendations : - Discharge patient to home. - Resume previous diet. - Continue present medications. - Await pathology results. My findings are described in the full procedure note, which is enclosed. If I can be of further assistance, please feel free to contact me at . Sincerely, Adam Cintron, 11/09/2023 7:19:40 AM This report has been signed electronically.
--- NOTE | 2023-11-09 07:21 | OP.EGD_ITS ---
Patient Name: Gilberto Light Procedure Date: 11/09/2023 6:56 AM Date of : 1995 Age: 28 Procedure: Upper GI endoscopy Indications: Epigastric abdominal pain, Functional Dyspepsia Providers: Adam Cintron DO Referring MD: Gera Ireland Medicines: Monitored Anesthesia Care Patient Profile: This is a 28 year old male. Refer to note in patient chart for documentation of history and physical. Patient has symptoms of chronic epigastric abdominal pain and chronic dyspepsia. Complications: No immediate complications. Procedure: Pre-Anesthesia Assessment: - Prior to the procedure, a History and Physical was performed, and patient medications and allergies were reviewed. The patient is competent. The risks and benefits of the procedure and the sedation options and risks were discussed with the patient. All questions were answered and informed consent was obtained. Patient identification and proposed procedure were verified by the physician in the pre-procedure area. Mental Status Examination: alert and oriented. Airway Examination: normal oropharyngeal airway and neck mobility. Respiratory Examination: clear to auscultation. CV Examination: normal. Prophylactic Antibiotics: The patient does not require prophylactic antibiotics. Prior Anticoagulants: The patient has taken no anticoagulant or antiplatelet agents. ASA Grade Assessment: II - A patient with mild systemic disease. After reviewing the risks and benefits, the patient was deemed in satisfactory condition to undergo the procedure. The anesthesia plan was to use monitored anesthesia care (MAC). Immediately prior to administration of medications, the patient was re-assessed for adequacy to receive sedatives. The heart rate, respiratory rate, oxygen saturations, blood pressure, adequacy of pulmonary ventilation, and response to care were monitored throughout the procedure. The physical status of the patient was re-assessed after the procedure. After obtaining informed consent, the endoscope was passed under direct vision. Throughout the procedure, the patient's blood pressure, pulse, and oxygen saturations were monitored continuously. The Endoscope was introduced through the mouth, and advanced to the second part of duodenum. The upper GI endoscopy was accomplished with ease. The patient tolerated the procedure well. Scope In: 7:04:25 AM Scope Out: 7:08:38 AM Total Procedure Duration Time 0 hours 4 minutes 13 seconds Findings: The Z-line was irregular and was found 39 cm from the incisors. Biopsies were taken with a cold forceps for histology. Verification of patient identification for the specimen was done. Estimated blood loss was minimal. The entire examined stomach was normal. Localized mild inflammation characterized by congestion (edema) and erythema was found in the duodenal bulb and in the first portion of the duodenum. Biopsies were taken with a cold forceps for histology. Verification of patient identification for the specimen was done. Estimated blood loss was minimal. Impression: - Z-line irregular, 39 cm from the incisors. Biopsied. - Normal stomach. - Duodenitis. Biopsied. Recommendation: - Discharge patient to home. - Resume previous diet. - Continue present medications. - Await pathology results. Procedure Code(s): --- Professional --- 44040, Esophagogastroduodenoscopy, flexible, transoral; with biopsy, single or multiple CPT copyright 2021 [employer]. All rights reserved. The codes documented in this report are preliminary and upon bed bug exterminator review may be revised to meet current compliance requirements. Adam Cintron DO 11/09/2023 7:19:40 AM This report has been signed electronically. Number of Addenda: 0 Note Initiated On: 11/09/2023 6:56 AM
== END 2023-11-09 07:56 | disposition home or self-care (01) ==
LOC: EN 05:57 → AC 05:57
PROVIDERS: PCP Family Medicine; Referring Provider Family Medicine; Visit Provider Internal Medicine Gastroenterology
PROC: 0DJ08ZZ Inspection of Upper Intestinal Tract, Via Natural or Artificial Opening Endoscopic (ICD-10-PCS; CPT 43235; principal; 2023-11-09 06:55)
DX: K21.00 Gastro-esophageal reflux disease with esophagitis, without bleeding (principal); K51.00 Ulcerative (chronic) pancolitis without complications; K29.80 Duodenitis without bleeding; Z79.899 Other long term (current) drug therapy
CPT/HCPCS: 43239; 88305; 88313; J7120; J2405